=== PATIENT | female | born 1955 | race Caucasian/White ===

== ENCOUNTER 2022-08-09 11:48 | Emergency (ER) | payer MEDICARE, OTHER, SELFPAY ==
[2022-08-09 12:16] VITALS: BP 158/77; PULSE 70; RESP 15; TEMP 36.1; O2SAT 98; BMI 32.3
--- NOTE | 2022-08-09 12:18 | DI.RAD.S_ITS ---
PROCEDURE: XR KNEE RT 3V INDICATIONS: knee pain with weight bearing TECHNIQUE: 3 views of the knee were acquired. COMPARISON: None. FINDINGS: Bones: No fractures or dislocations. No suspicious bony lesions. Mild medial compartment arthritic change. Minimal periarticular osteophytes. No erosions. Soft tissues: Mild joint effusion. No suspicious soft tissue calcifications. IMPRESSION: No visualized acute fracture or dislocation. However, if clinical concern and/or pain persist, short interval imaging followup in 7-10 days is recommended, as occult injury cannot be definitively excluded. Dictated by: Zoya Flores M.D. on 08/09/2022 at 13:25 Approved by: Zoya Flores M.D. on 08/09/2022 at 13:25
--- NOTE | 2022-08-09 12:56 | ED.EXTPRO ---
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 She complains pain in the center of her knee with some swelling to the distal lateral aspect below her patella. She denies any rash, erythema, fever, chills, states that her knee does not hurt when she is sitting but when she is bearing weight it is painful. She has a history of Related Data Previous Rx's Medication Instructions Recorded hydrocodone 5 mg-acetaminophen 325 1 tab PO BID #14 tabs 08/09/22 mg tablet Allergies Allergy/AdvReac Type Severity Reaction Status Date / Time No Known Drug Allergies Allergy Verified 08/09/22 12:16 Patient History <BORIS Schuler - Last Filed: 08/09/22 15:26> Social History Smoking Status: Unknown if ever smoked Smoking Status: Unknown if ever smoked alcohol intake frequency: holidays/special occasions only Substance Use Type: does not use Exam <BORIS Schuler - Last Filed: 08/09/22 15:26> Initial Vital Signs Initial Vital Signs: Vital Signs Temperature 97.0 F L 08/09/22 12:16 Pulse Rate 70 08/09/22 12:16 Respiratory Rate 15 08/09/22 12:16 Blood Pressure 158/77 H 08/09/22 12:16 Pulse Oximetry 98 08/09/22 12:16 Oxygen Delivery Method 08/09/22 12:16 <Betsy Barajas DO - Last Filed: 08/10/22 12:05> Initial Vital Signs Initial Vital Signs: Vital Signs Temperature 97.0 F L 08/09/22 12:16 Pulse Rate 70 08/09/22 12:16 Respiratory Rate 15 08/09/22 12:16 Blood Pressure 158/77 H 08/09/22 12:16 Pulse Oximetry 98 08/09/22 12:16 Oxygen Delivery Method 08/09/22 12:16 Course <BORIS Schuler - Last Filed: 08/09/22 15:26> Orders Ordered: Discontinued Medications Acetaminophen (Acetaminophen 325 Mg Tablet) 650 mg PO NOW ONE Stop: 08/09/22 13:42 Last Admin: 08/09/22 13:46 Dose: 650 mg Documented By: COLBY Ketorolac Tromethamine (Ketorolac 30 Mg/Ml Vial) 15 mg IM NOW ONE Stop: 08/09/22 13:42 Last Admin: 08/09/22 13:46 Dose: 15 mg Documented By: COLBY Vital Signs Vital signs: Vital Signs - 8 hr 08/09/22 12:16 08/09/22 14:04 Temperature 97.0 F L Pulse Rate 70 77 Respiratory Rate 15 16 Blood Pressure 158/77 H 144/72 H Pulse Oximetry 98 98 Oxygen Delivery Method Room Air Room Air <Betsy Barajas DO - Last Filed: 08/10/22 12:05> Orders Ordered: Discontinued Medications Acetaminophen (Acetaminophen 325 Mg Tablet) 650 mg PO NOW ONE Stop: 08/09/22 13:42 Last Admin: 08/09/22 13:46 Dose: 650 mg Documented By: COLBY Ketorolac Tromethamine (Ketorolac 30 Mg/Ml Vial) 15 mg IM NOW ONE Stop: 08/09/22 13:42 Last Admin: 08/09/22 13:46 Dose: 15 mg Documented By: COLBY Vital Signs Vital signs: Vital Signs - 8 hr 08/09/22 12:16 08/09/22 14:04 Temperature 97.0 F L Pulse Rate 70 77 Respiratory Rate 15 16 Blood Pressure 158/77 H 144/72 H Pulse Oximetry 98 98 Oxygen Delivery Method Room Air Room Air MDM - Extremity (Nontraumatic) <BORIS Schuler - Last Filed: 08/09/22 15:26> Imaging Data Extremity x-ray #1: Radiologist's Impression: PROCEDURE:? XR KNEE RT 3V ? INDICATIONS:? knee pain with weight bearing ? TECHNIQUE:? 3 views of the knee were acquired.? ? COMPARISON:? None. ? FINDINGS:? ? Bones:? No fractures or dislocations.? No suspicious bony lesions.? Mild medial compartment arthritic change.? Minimal periarticular osteophytes.? No erosions. ? Soft tissues:? Mild joint effusion.? No suspicious soft tissue calcifications.? ? ? IMPRESSION:? No visualized acute fracture or dislocation. However, if clinical concern and/or pain persist, short interval imaging followup in 7-10 days is recommended, as occult injury cannot be definitively excluded. ? ? Dictated by: Zoya Flores M.D. on 08/09/2022 at 13:25 ? ? Approved by: Zoya Flores M.D. on 08/09/2022 at 13:25 ? MDM Narrative Medical decision making narrative: This patient presents today with knee pain, suspicious for degenerative changes and effusion likely secondary to arthritic flare. Able to flex and extend although somewhat limited by pain. Considered, but doubt, tibial plateau fracture, infectious/gouty/inflammatory arthritis, other acute unstable fracture, or significant neurovascular compromise. Plan: XR, pain control, reassessment. Her symptoms improve with the above-stated therapies. Given history, exam, and mechanism. No e/o compartment syndrome, septic arthritis, other acute fracture. Range of motion is intact. Patient without tenderness over their MCL, LCL, patellar tendon, Dorcas's negative, Sarita's negative, no significant laxity with varus and valgus testing. The patient does not report any instability and can bear weight although painful. There is no weakness, flexion-extension range of motion is full. There is a mild patellar effusion by palpation, no surrounding erythema, no sensation changes distally. Other diagnoses considered include patellofemoral syndrome, patellar tendinitis, meniscal injury, ligamental injury, prepatellar bursitis, arthritis, referred pain, IT band, muscle strain, knee effusion, hemarthrosis and gout. Patient has primary care provider in [place] where she also lives, she will pursue request for referral to Orthopedics and Physical therapy for evaluation, encouraged her to use ice, NSAIDs as needed, hydrocodone for breakthrough pain, and rest. Discussed using a knee immobilizer and this would cause her a greater fall with, encouraged her to use Roberto bandage or a sleeve for additional support. Discharge Plan Departure Patient Disposition: Home Clinical Impression: Acute joint effusion Arthritis of knee, degenerative Qualifiers: Osteoarthritis type: unspecified Laterality: right Qualified Code(s): M17.11 - Unilateral primary osteoarthritis, right knee Instructions: Osteoarthritis, DI for Knee Effusion, How to Apply an Elastic Wrap on Knee Activity Restrictions/Additional Instructions: *You have been diagnosed with [a mild joint effusion to your right knee, there is mild medial compartment arthritic changes without suspicious bony erosions. Please use topical diclofenac gel 4 daily as needed, you can use an Roberto bandage or a sleeve knee immobilizer to help restrict sensation of instability and provide extra support. Please take ibuprofen 600 mg every 6 hours with food and water, you can combine this with Tylenol 650 mg for better pain control. Take hydrocodone every 6 hours as needed in addition to that for breakthrough pain. Avoid walking on it frequently and ice it, those can provide some of the best pain relief. Please follow-up with your primary doctor for a referral to Orthopedics, you can also go to [facility] if that is helpful. *What to do: *Please continue to take your regular medications as directed. [ x] New medication prescriptions sent to your pharmacy: [[facility] ] [ ] New medication written as a paper prescription [ ] No new medications given Betsy Lazcano DO [facility] [address], [address] [place] [address] *Please follow up with your primary care provider in 2-3 days, call for an appointment. Let them know you were seen in the Emergency Department and that we asked that you be seen for follow-up. We will electronically transmit a record of today's note if your PCP is in our system *If you do not have a primary care provider please contact [phone] to establish care with one of the [facility] primary care providers. *Return to Emergency Department if you should have any new, worsening, or concerning symptoms, such as [fever greater than 101F, chills, worsening pain, persistent vomiting or other bothersome symptoms]. Prescriptions: New hydrocodone-acetaminophen 5-325 mg tablet 1 tab PO BID Qty: 14 0RF Referrals: [facility] [Provider Group] [facility] [Outside] ([facility] and Knee Make an Appointment Today ) Visit Report Forms: Patient Portal/API <Betsy Barajas DO - Last Filed: 08/10/22 12:05> Cosign ED Attending Cosignature Attestation: I was immediately available in the department for consultation. Documentation has been reviewed, patient does not have ROS or exam findings noted I did not see the patient and can not add these at this time.
[2022-08-09] MEDS: KETOROLAC 30 MG/ML VIAL 15 MG IM (13:46)
[2022-08-09] MEDS: ACETAMINOPHEN 325 MG TABLET 650 MG PO (13:46)
[2022-08-09 14:04] VITALS: BP 144/72; PULSE 77; RESP 16; O2SAT 98
== END 2022-08-09 14:04 | disposition home or self-care (01) ==
PROVIDERS: Emergency Provider Nurse Practitioner Critical Care Medicine
DX: M25.461 Effusion, right knee (principal); M17.11 Unilateral primary osteoarthritis, right knee
CPT/HCPCS: 73562; 96372; 99283; J1885